=== PATIENT | female | born 1950 ===

== ENCOUNTER 2021-09-07 11:30 | Inpatient (IN) | payer OTHER ==
[~2021-09-07] VITALS: Ht 152.4 cm; Wt 68.0 kg
== END 2021-09-15 10:36 | disposition home or self-care (01) | DRG 330 ==
LOC: ADM 11:30 → EDSTATUS 11:30 → SURH 09-12 05:18 → O/R 09-12 05:18 → SURG 09-12 07:30 → SURH 09-12 12:12
PROVIDERS: ADMIT Colon & Rectal Surgery; ATTEND Colon & Rectal Surgery
PROC: 0DBP4ZZ Excision of Rectum, Percutaneous Endoscopic Approach (ICD-10-PCS; 2021-09-12)
PROC: 07BB4ZZ Excision of Mesenteric Lymphatic, Percutaneous Endoscopic Approach (ICD-10-PCS; 2021-09-12)
PROC: 0DTN4ZZ Resection of Sigmoid Colon, Percutaneous Endoscopic Approach (ICD-10-PCS; principal; 2021-09-12 07:30)
DX: K57.32 Diverticulitis of large intestine without perforation or abscess without bleeding (principal); K92.1 Melena; D12.5 Benign neoplasm of sigmoid colon